=== PATIENT | female | born 1975 | race Caucasian/White ===

== ENCOUNTER → 2021-04-11 | Outpatient (CLI) | payer OTHER | LOC: M WHC 07:29 | PROVIDERS: ATTEND Family Medicine | DX: Z12.31 Encounter for screening mammogram for malignant neoplasm of breast (principal); Z80.3 Family history of malignant neoplasm of breast ==

== ENCOUNTER → 2022-07-05 | Outpatient (CLI) | payer BC, OTHER | LOC: M WHC 16:26 | PROVIDERS: ATTEND Nurse Practitioner Family | DX: Z12.31 Encounter for screening mammogram for malignant neoplasm of breast (principal) ==

== ENCOUNTER → 2023-01-25 | Outpatient (REF) | payer BC | LOC: M SFHCDERM 11:15 | PROVIDERS: ATTEND Nurse Practitioner Family | DX: D23.61 Other benign neoplasm of skin of right upper limb, including shoulder (principal) ==

== ENCOUNTER → 2023-04-26 | Outpatient (REF) | payer BC | LOC: M SFHCDERM 11:16 | PROVIDERS: ATTEND Nurse Practitioner Family | DX: D23.5 Other benign neoplasm of skin of trunk (principal) ==

== ENCOUNTER → 2023-05-28 | Outpatient (REF) | payer BC | LOC: M LAB REF 17:19 | PROVIDERS: ATTEND Surgery | DX: I78.1 Nevus, non-neoplastic (principal) ==